=== PATIENT | female | born 1985 | race Caucasian/White ===

== ENCOUNTER 2022-03-03 00:07 | Emergency (ER) | payer BC, OTHER ==
[2022-03-03] MEDS ORDERED: Boostrix 0.5 ML (Tdap) VIAL ONE (00:40)
[2022-03-03] MEDS ORDERED: Bacitracin 1 PK ONE (00:50)
[2022-03-03] MEDS ORDERED: XYLOCAINE 2%-EPI 1:100,000 20 ML VIAL ONE (00:50)
[2022-03-03] MEDS ORDERED: Lidocaine 1%/Epinephrine 1:100K 10 ML VIAL ONE (00:53)
[2022-03-03 01:35] LABS: BHCG - Serum Negative (NEGATIVE); Pregs Control Background? CLEAR/WHITE (CLR/WHITE); Pregs Control Bar Appear? YES (CONTROL BAR)
[2022-03-03] MEDS ORDERED: Cephalexin 500 MG CAP ONE (01:57)
== END 2022-03-03 02:03 | disposition home or self-care (01) ==
LOC: MADERS 00:07
DX: S01.112A Laceration without foreign body of left eyelid and periocular area, initial encounter (principal); R00.0 Tachycardia, unspecified; F17.210 Nicotine dependence, cigarettes, uncomplicated; Z23 Encounter for immunization; W19.XXXA Unspecified fall, initial encounter
CPT/HCPCS: 12011; 70450; 70486; 72125; 84703; 90471; 90715